=== PATIENT | female | born 1975 | race Caucasian/White ===

== ENCOUNTER → 2017-01-13 | Outpatient (CLI) | payer OTHER ==
[~2017-01-13] MED LIST: BIOT5000 PO; BUPRTAB PO; CHOL200010 PO; ESCI1TAB9 PO; LEVO1TAB PO; METF1000 PO; OXYC-57 PO; PANT40TA PO; PRENTAB26 PO; SELE1TAB5 PO
[2017-01-13 13:05] LABS: BASO % 0.2 %; BASO ABS # 0.01 K/uL (0-0.2); COMPLETE YES; EOS % 1.8 %; HEMATOCRIT 39.3 % (37-47); IG% 0.2 %; LYMPH % 24.8 %; MEAN CELL VOLUME 86.6 fL (80-100); MEAN CORPUSCULAR HEMOGLOBIN 29.1 pg (25-34); MEAN CORPUSCULAR HGB CONC 33.6 g/dl (32-36); MEAN PLATELET VOLUME 11.2 fL (7.4-10.4); MONO % 7.8 %; NEUT % 65.2 %; PLATELET COUNT 202 K/uL (130-400); RED BLOOD COUNT 4.54 M/uL (4.2-5.4); WHITE BLOOD COUNT 5.64 K/uL (4.8-10.8)
[2017-01-13 13:19] LABS: ALT/SGPT 18 U/L (12-78); BLOOD UREA NITROGEN 9 mg/dl (7-18); BUN/CREATININE RATIO 13.7 (10-20); CALCIUM 8.6 mg/dl (8.5-10.1); CARBON DIOXIDE 26 mmol/L (21-32); CHLORIDE 105 mmol/L (98-107); CHOLESTEROL 170 mg/dl (0-200); CREATININE 0.68 mg/dl (0.60-1.20); GLUCOSE 93 mg/dl (70-99); SODIUM 140 mmol/L (136-145)
[2017-01-13 13:27] LABS: ALB/GLOB RATIO 1.1 (0.9-2); ALKALINE PHOSPHATASE 65 U/L (45-117); AST/SGOT 13 U/L (15-37); CHOLESTEROL/HDL RATIO 2.5; ESTIMATED AVERAGE GLUCOSE 111 mg/dl; HA1C FLAG Normal (Normal); HDL CHOLESTEROL 69 mg/dl; LDL CHOLESTEROL CALCULATED 89 mg/dl; THYROID STIMULATING HORMONE 0.054 uIu/ml (0.300-4.500); TRIGLYCERIDES 61 mg/dl (0-150); VERY LOW DENSITY LIPOPROT CALC 12 mg/dl
== END | disposition home or self-care (01) ==
LOC: C.LAB 11:53
PROVIDERS: ATTEND Nurse Practitioner Family
DX: E66.9 Obesity, unspecified (principal); E88.81 Metabolic syndrome and other insulin resistance; E03.9 Hypothyroidism, unspecified; E53.8 Deficiency of other specified B group vitamins; E55.9 Vitamin D deficiency, unspecified

== ENCOUNTER → 2017-03-23 | Outpatient (CLI) | payer OTHER ==
[2017-03-23 17:13] LABS: THYROID STIMULATING HORMONE 0.038 uIu/ml (0.300-4.500)
== END | disposition home or self-care (01) ==
LOC: C.LAB 14:22
PROVIDERS: ATTEND Nurse Practitioner Family
DX: E03.9 Hypothyroidism, unspecified (principal)

== ENCOUNTER → 2017-07-20 | Outpatient (CLI) | payer OTHER | END | disposition home or self-care (01) | LOC: C.LAB 10:24 | PROVIDERS: ATTEND Nurse Practitioner Family | DX: E03.9 Hypothyroidism, unspecified (principal) ==

== ENCOUNTER → 2017-07-30 | Outpatient (CLI) | payer OTHER ==
--- NOTE | 2017-07-30 15:19 | DIAGNOSTIC IMAGING REPORT ---
LEFT KNEE 1 OR 2 VIEWS ROUTINE CLINICAL HISTORY: 42 years-old Female presenting with M25.561 Knee pain, bilateral. TECHNIQUE: Frontal and lateral views of the left knee were obtained. COMPARISON: 2006. FINDINGS: Bulbous exophytic lesion at the medial aspect of the proximal tibial metaphysis is unchanged since 2006, which may demonstrate continuity with the medullary trabecula, possibly osteochondroma or other benign entity. Additional similar-appearing region in the medial aspect of the distal femoral metaphysis. In combination with the prior appearance of the bilateral knees, this is consistent with a rotatory multiple exostoses. No acute fracture or malalignment. Minimal osteophytosis at the patellofemoral compartment suggested. No joint space loss. No large effusion. IMPRESSION: No acute osseous injury. 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 Electronically signed by: Aung Miguel M.D. 07/30/2017 3:18 PM Dictated Date/Time: 07/30/2017 3:13 PM
--- NOTE | 2017-07-30 15:20 | DIAGNOSTIC IMAGING REPORT ---
STANDING AP RADIOGRAPHS OF THE KNEES CLINICAL HISTORY: Bilateral knee pain. Recent fall. COMPARISON: Knee radiographs December 17, 2016. FINDINGS: Alignment of the knees is anatomic on AP projection. Medial and lateral compartment joint spaces are preserved. No fracture or suspicious lesion is identified by radiography. Note is made of numerous bony excrescences arising from visualized skeletal structures which are similar to exam of December 17, 2016. These suggest osteochondromas, the largest of which is a 1.8 cm lesion arising from the medial metadiaphysis of the right femur. IMPRESSION: 1. 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 2. Preserved medial and lateral component joint spaces within the knees. Electronically signed by: Jesus Manzanares M.D. 07/30/2017 3:19 PM Dictated Date/Time: 07/30/2017 3:16 PM
--- NOTE | 2017-07-30 15:21 | DIAGNOSTIC IMAGING REPORT ---
RIGHT KNEE 1 OR 2 VIEWS ROUTINE CLINICAL HISTORY: 42 years-old Female presenting with M25.561 Knee pain, bilateral Right. TECHNIQUE: Frontal and lateral views of the right knee were obtained. COMPARISON: 2005. FINDINGS: Multiple osseous excrescences arising from the cortex with possible continuity with the biliary trabecula, suggestive of osteochondromas. This is similar in appearance to 2006. Minimal osteophytosis may be present at the lateral and patellofemoral compartments. No joint space loss. No large effusion. No acute fracture or malalignment. IMPRESSION: No acute osseous injury of the right knee. Suggestion of hereditary multiple exostoses. Electronically signed by: Aung Miguel M.D. 07/30/2017 3:19 PM Dictated Date/Time: 07/30/2017 3:18 PM
== END | disposition home or self-care (01) ==
LOC: C.RAD 14:21
PROVIDERS: ATTEND Nurse Practitioner Family
DX: M25.561 Pain in right knee (principal); M25.562 Pain in left knee

== ENCOUNTER → 2018-01-20 | Outpatient (CLI) | payer OTHER ==
--- NOTE | 2018-01-20 14:16 | DIAGNOSTIC IMAGING REPORT ---
L FOOT MIN 3 VIEWS ROUTINE CLINICAL HISTORY: LEFT FOOT PAIN COMPARISON: None FINDINGS: Alignment of the tarsometatarsal joints is anatomic. No acute fractures are identified on this exam. The left third digit is diminutive with chronic irregularity of the left third metatarsal bone as well as the proximal phalanx of the left third toe. No suspicious osseous lesion is present. There is no evidence for stress fracture. No erosions are present. There is minimal plantar calcaneal spurring. Mild osteoarthritis is noted within several articulations of the left foot. IMPRESSION: 1. No acute fracture or dislocation within the left foot. 2. Chronic deformity of the left third digit. 3. 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 Electronically signed by: Jesus Manzanares M.D. 01/20/2018 2:14 PM Dictated Date/Time: 01/20/2018 2:12 PM
[2018-01-20 15:13] LABS: ALBUMIN 3.8 gm/dl (3.4-5.0); ALT/SGPT 22 U/L (12-78); BLOOD UREA NITROGEN 12 mg/dl (7-18); CALCIUM 8.9 mg/dl (8.5-10.1); CARBON DIOXIDE 32 mmol/L (21-32); CHOLESTEROL 174 mg/dl (0-200); CREATININE 0.84 mg/dl (0.60-1.20); GLUCOSE 83 mg/dl (70-99); POTASSIUM 4.1 mmol/L (3.5-5.1); SODIUM 138 mmol/L (136-145)
[2018-01-20 15:24] LABS: ALKALINE PHOSPHATASE 63 U/L (45-117); AST/SGOT 13 U/L (15-37); LDL CHOLESTEROL CALCULATED 92 mg/dl
[2018-01-21 06:51] LABS: HEMOGLOBIN A1C 5.6 % (4.5-5.6)
== END | disposition home or self-care (01) ==
LOC: C.RAD1850 13:24
PROVIDERS: ATTEND Nurse Practitioner Family
DX: M79.672 Pain in left foot (principal); M19.072 Primary osteoarthritis, left ankle and foot; E88.81 Metabolic syndrome and other insulin resistance; K21.9 Gastro-esophageal reflux disease without esophagitis; F32.9 Major depressive disorder, single episode, unspecified; R10.9 Unspecified abdominal pain